=== PATIENT | male | born 1975 | race Caucasian/White ===

== ENCOUNTER 2020-10-17 05:33 | Inpatient (IN) ==
[2020-10-17] MEDS ORDERED: ONDANSETRON 4 MG/2 ML VIAL IV STA (05:52)
[2020-10-17] MEDS ORDERED: SODIUM CHLORIDE 0.9% 1,000 ML IV STA (05:52)
[2020-10-17] MEDS ORDERED: PANTOPRAZOLE INJ 80 MG in SODIUM CHLORIDE 0.9% 100 ML IV STA (05:52)
[2020-10-17] MEDS ORDERED: PANTOPRAZOLE 40 MG VIAL IV ONE (05:54)
[2020-10-17] MEDS ORDERED: ONDANSETRON 4 MG/2 ML VIAL ONE ×2 (05:54→11:24)
[2020-10-17 06:12] LABS: Basophils # 0.2 10*3/uL (0.0-0.2); Basophils % 1.8 % (0.0-0.8); Eosinophils # 0.2 10*3/uL (0.0-0.87); Eosinophils % 1.3 % (0.00-10.9); Hematocrit 38.4 VOL% (42.0-52.0); Hemoglobin 12.5 GM/DL (14.0-18.0); Immature Granulocytes % 0.3 %; Immature Granulocytes Absolute 0.04 #; Lymphocytes # 2.5 10*3/uL (1.4-4.0); Lymphocytes % 20.4 % (21.2-54.2); Mean Corpuscular HGB Conc 32.6 GM/DL (32-36); Mean Platelet Volume 10.4 FL (9.6-12.0); Monocytes % 14.2 % (1.7-12.7); Platelet Count 409 T/CUMM (130-400); Red Cell Distribution Width 15.7 % (9.3-17.3); White Blood Count 12.4 T/CUMM (4-12)
[2020-10-17] MEDS ORDERED: PROTHROMBIN COMPLEX IV ONE (06:30)
[2020-10-17] MEDS: SODIUM CHLORIDE 0.9% 1,000 ML IV SCH ×2 (06:30→19:09)
[2020-10-17 06:46] LABS: Albumin 3.3 G/DL (3.4-5.0); Bilirubin,Total 1.2 MG/DL (0.2-1.0); Osmolality,Calculated 292.1 MOS/KG (273-304); Potassium 4.1 MMOL/L (3.5-5.1); Total Protein 6.6 G/DL (6.4-8.2)
[2020-10-17 06:55] LABS: INR 1.1; PT Patient Result 12.5 SECS (10.5-12.0); Partial Thromboplastin Time 24.9 SECS (23.9-33.8)
[2020-10-17] MEDS: PANTOPRAZOLE INJ 200 MG in SODIUM CHLORIDE 0.9% 250 ML IV SCH (06:58)
[2020-10-17] MEDS ORDERED: ONDANSETRON 4 MG/2 ML VIAL IV PRN (08:26)
[2020-10-17] MEDS ORDERED: ALBUTEROL 2.5 MG/3 ML NEB RESP TX PRN (08:26)
[2020-10-17 08:49] LABS: Hematocrit 35.8 VOL% (42.0-52.0)
[2020-10-17] MEDS ORDERED: propofoL 200 MG/20 ML VIAL IV ONE (11:23)
[2020-10-17] MEDS ORDERED: LIDOCAINE 2% 5 ML VIAL ONE (11:23)
[2020-10-17] MEDS ORDERED: ETOMIDATE 40 MG/20 ML VIAL IV ONE (11:23)
[2020-10-17] MEDS ORDERED: DEXMEDETOMIDINE 200 MCG/2 ML VIAL ONE (11:25)
[2020-10-17] MEDS ORDERED: DEXAMETHASONE 4 MG/1 ML VIAL ONE (11:53)
[2020-10-17] MEDS ORDERED: SEVOFLURANE 1 UNIT/15 MINUTE INH ONE (12:03)
[2020-10-17] MEDS: LACTATED RINGERS 1,000 ML IV SCH ×2 (14:02→20:04)
[2020-10-17] MEDS: OCTREOTIDE 500 MCG in SODIUM CHLORIDE 0.9% 100 ML IV SCH ×2 (15:10→23:28)
[2020-10-17 15:12] LABS: Hematocrit 34.4 VOL% (42.0-52.0); Hemoglobin 11.4 GM/DL (14.0-18.0)
[2020-10-17 20:34] LABS: Hemoglobin 10.8 GM/DL (14.0-18.0)
[2020-10-18 03:17] LABS: Basophils # 0.1 10*3/uL (0.0-0.2); Basophils % 0.9 % (0.0-0.8); Eosinophils % 0.1 % (0.00-10.9); Hematocrit 30.1 VOL% (42.0-52.0); Immature Granulocytes % 0.5 %; Immature Granulocytes Absolute 0.07 #; Lymphocytes # 1.5 10*3/uL (1.4-4.0); Lymphocytes % 11.4 % (21.2-54.2); Mean Corpuscular HGB Conc 33.2 GM/DL (32-36); Mean Corpuscular Volume 96.2 FL (87-102); Mean Platelet Volume 10.6 FL (9.6-12.0); Monocytes % 10.4 % (1.7-12.7); Neutrophils % 76.7 % (38.7-73.9); Platelet Count 307 T/CUMM (130-400); Red Blood Count 3.13 MC/CUMM (3.8-5.5); Red Cell Distribution Width 15.6 % (9.3-17.3); White Blood Count 12.9 T/CUMM (4-12)
[2020-10-18 03:26] LABS: Albumin 2.8 G/DL (3.4-5.0); Bilirubin,Total 1.3 MG/DL (0.2-1.0); Calcium 7.6 MG/DL (8.5-10.1); Potassium 4.2 MMOL/L (3.5-5.1); Total Protein 5.4 G/DL (6.4-8.2)
[2020-10-18 03:35] LABS: INR 1.1; PT Patient Result 12.2 SECS (10.5-12.0)
[2020-10-18] MEDS: PANTOPRAZOLE INJ 200 MG in SODIUM CHLORIDE 0.9% 250 ML IV SCH ×2 (04:22→05:22)
[2020-10-18] MEDS: LACTATED RINGERS 1,000 ML IV SCH ×3 (04:45→23:21)
[2020-10-18] MEDS: OCTREOTIDE 500 MCG in SODIUM CHLORIDE 0.9% 100 ML IV SCH (10:06)
[2020-10-18] MEDS ORDERED: OCTREOTIDE 500 MCG in SODIUM CHLORIDE 0.9% 100 ML IV SCH (13:10)
[2020-10-18 13:13] LABS: Basophils # 0.2 10*3/uL (0.0-0.2); Basophils % 1.3 % (0.0-0.8); Eosinophils # 0.2 10*3/uL (0.0-0.87); Eosinophils % 1.3 % (0.00-10.9); Hematocrit 35.7 VOL% (42.0-52.0); Hemoglobin 11.9 GM/DL (14.0-18.0); Immature Granulocytes % 0.6 %; Lymphocytes # 3.1 10*3/uL (1.4-4.0); Lymphocytes % 17.2 % (21.2-54.2); Mean Corpuscular HGB Conc 33.3 GM/DL (32-36); Mean Corpuscular Volume 96.7 FL (87-102); Mean Platelet Volume 10.5 FL (9.6-12.0); Monocytes % 10.8 % (1.7-12.7); Neutrophils % 68.8 % (38.7-73.9); Platelet Count 349 T/CUMM (130-400); Red Blood Count 3.69 MC/CUMM (3.8-5.5); Red Cell Distribution Width 15.5 % (9.3-17.3)
[2020-10-18 19:11] LABS: Eosinophils 1 % (0-10); Lymphocytes 16 % (20-55); Platelet Estimate Normal; Segmented Neutrophils 78 % (50-85); Total Cells Counted 100
[2020-10-19 05:28] LABS: Basophils # 0.2 10*3/uL (0.0-0.2); Basophils % 1.8 % (0.0-0.8); Eosinophils # 0.4 10*3/uL (0.0-0.87); Eosinophils % 3.1 % (0.00-10.9); Hematocrit 27.4 VOL% (42.0-52.0); Hemoglobin 9.2 GM/DL (14.0-18.0); Immature Granulocytes % 0.3 %; Immature Granulocytes Absolute 0.04 #; Lymphocytes # 3.5 10*3/uL (1.4-4.0); Lymphocytes % 29.9 % (21.2-54.2); Mean Corpuscular HGB Conc 33.6 GM/DL (32-36); Mean Corpuscular Volume 96.8 FL (87-102); Neutrophils % 50.9 % (38.7-73.9); Platelet Count 281 T/CUMM (130-400); Red Blood Count 2.83 MC/CUMM (3.8-5.5); Red Cell Distribution Width 15.5 % (9.3-17.3); White Blood Count 11.5 T/CUMM (4-12)
[2020-10-19 06:05] LABS: Calcium 7.5 MG/DL (8.5-10.1); Potassium 3.4 MMOL/L (3.5-5.1)
[2020-10-19] MEDS: PANTOPRAZOLE INJ 200 MG in SODIUM CHLORIDE 0.9% 250 ML IV SCH (06:17)
[2020-10-19] MEDS: LACTATED RINGERS 1,000 ML IV SCH (06:46)
[2020-10-19 10:16] VITALS: BP 125/79
[2020-10-19] MEDS ORDERED: PANTOPRAZOLE 40 MG TABLET PO SCH (18:30)
== END 2020-10-19 12:56 | disposition home or self-care (01) | DRG 368 ==
LOC: N.ED 05:33 → SUATTDRO 08:26 → N.EDINP 08:26 → N.ICU 17:14 → N.4E 10-18 14:07
PROVIDERS: ADMIT Internal Medicine; ATTEND Internal Medicine